=== PATIENT | male | born 1955 ===

== ENCOUNTER → 2018-10-21 23:26 | Outpatient (REF) | payer MEDICARE, OTHER, SELFPAY ==
[2018-10-22 02:43] LABS: Add Manual Diff / Slide Review NO; Basophils Absolute Auto 0 /uL (0-100); Basophils Percent Auto 0.7 % (0-2); Eosinophils Absolute Auto 100 /uL (0-450); Eosinophils Percent Auto 2.2 % (2-4); Hematocrit 44.6 % (41-53); Hemoglobin 15.4 g/dL (13.5-17.5); Lymphocytes Absolute Auto 600 /uL (1100-4500); Lymphocytes Percent Auto 18.8 % (25-40); Mean Corpuscular HGB Conc 34.5 % (30-36); Mean Corpuscular Hemoglobin 31.8 PG (26-34); Mean Corpuscular Volume 92.2 fL (80-100); Monocytes Absolute Auto 300 /uL (0-900); Monocytes Percent Auto 10.2 % (3-14); Neutrophils Absolute Auto 2000 /uL (1500-7000); Neutrophils Percent Auto 68.1 % (50-75); Platelet Count 155 X10^3/uL (150-400); Red Blood Cell Count 4.84 X10^6/uL (4.5-5.9); Red Cell Distribution Width 13.2 % (11.6-14.8)
[2018-10-26 15:21] LABS: PSA Total 0.79 ng/mL (< 4.01)
[2018-10-27 14:07] LABS: Estrogen 52.6 pg/mL (60-190)
== END ==
LOC: LAB 23:26
PROVIDERS: Visit Provider Family Medicine
DX: E29.1 Testicular hypofunction (principal)
CPT/HCPCS: 36415; 82627; 82672; 84153; 84154; 84270; 84402; 84403; 85025